=== PATIENT | male | born 1995 | race Two or more races ===

== ENCOUNTER 2017-01-27 16:20 | Emergency (ER) | payer OTHER ==
[~2017-01-27] VITALS: Ht 185.4 cm; Wt 90.7 kg
[2017-01-27 16:53] VITALS: BP 117/82
[2017-01-27] MEDS ORDERED: TETANUS-DIPTH-ACEL PERTUSSIS 0.5ML SYRG IM ONE (18:00)
[2017-01-30 10:20] LABS: Hepatitis B Surface Antibody Positive
== END 2017-01-27 18:24 | disposition home or self-care (01) ==
LOC: ER 16:39
DX: S61.011A Laceration without foreign body of right thumb without damage to nail, initial encounter (principal); W45.8XXA Other foreign body or object entering through skin, initial encounter; Y93.89 Activity, other specified; Y92.149 Unspecified place in prison as the place of occurrence of the external cause; Y99.8 Other external cause status
CPT/HCPCS: 36415; 86703; 86706; 86803; 87340; 90471; 90715

== ENCOUNTER 2018-01-10 23:27 | Emergency (ER) | payer BC, OTHER ==
[~2018-01-10] VITALS: Ht 182.9 cm; Wt 95.3 kg
[2018-01-10 23:34] VITALS: BP 106/77
== END 2018-01-11 01:55 | disposition home or self-care (01) ==
LOC: ER 23:27
DX: S13.4XXA Sprain of ligaments of cervical spine, initial encounter (principal); G24.3 Spasmodic torticollis; M62.838 Other muscle spasm; V49.49XA Driver injured in collision with other motor vehicles in traffic accident, initial encounter; Y93.89 Activity, other specified; Y99.8 Other external cause status; Y92.410 Unspecified street and highway as the place of occurrence of the external cause
CPT/HCPCS: 70450; 71045; 72125